=== PATIENT | female | born 1960 | race Caucasian/White ===

== ENCOUNTER 2019-07-17 14:22 | Inpatient (IN) ==
[2019-07-17] MEDS ORDERED: METOCLOPRAMIDE HCL INJ 5 MG/ML 2 ML VIAL IV PRN (14:41)
[2019-07-17 15:39] LABS: Basophils # (auto) 0.02 K/uL (0-0.2); Basophils % (auto) 0.2 %; Eosinophils # (auto) 0.04 K/uL (0-0.5); Eosinophils % (auto) 0.4 %; Hematocrit (blood only) 34.8 % (37-47); Hemoglobin 11.7 g/dL (12.0-16.0); Immature Granulocytes # (auto) 0.04 K/uL (0.00-0.02); Immature Granulocytes % (auto) 0.4 %; Lymphocytes # (auto) 1.99 K/uL (1.2-3.4); Lymphocytes % (auto) 21.3 %; Mean Corpuscular Volume 89.2 fL (80-100); Mean Platelet Volume 8.5 fL (7.4-10.4); Monocytes # (auto) 1.02 K/uL (0.11-0.59); Monocytes % (auto) 10.9 %; Neutrophils # (auto) 6.25 K/uL (1.4-6.5); Neutrophils % (auto) 66.8 %; Platelet Count 300 K/uL (130-400); RDW Coefficient of Variation 14.3 % (11.5-14.5); RDW Standard Deviation 46.8 fL (36.4-46.3); White Blood Count 9.36 K/uL (4.8-10.8)
--- NOTE | 2019-07-17 15:42 | History & Physical Report ---
Date of Service July 17, 2019 Assessment & Plan (1) Dislocation of right shoulder joint: She sustained a fall on July 06. She presented to [facility] emergency room on the third. X-rays at that time demonstrated a dislocation of the shoulder with a small inferior bony Bankart. Attempt was made by the emergency room staff for reduction under sedation but they were unsuccessful area they discussed the case with a different orthopedic surgeon who recommended sling and follow-up in the office. However she did not follow-up in his office she presented to my office today. New x-rays were obtained once again demonstrate the description of the shoulder. The plan will be for attempted closed reduction under anesthesia in the operating room. She is chronically on Coumadin and we will need to reverse this in case I need to perform an open reduction of the shoulder. I will have medicine see her for medical management as well as for reversal of her anticoagulation. An INR has been ordered but is still pending. Present on Admission?: Yes History of Present Illness On warfarin therapy Chief Complaint: Right shoulder dislocation Primary Care Provider: NO PCP The patient is a 58-year-old female with a past history of stroke with right- sided weakness. She sustained a fall on July 06. She was seen at the emergency room at [facility] on July 12. At that time she was diagnosed with a dislocation of the right shoulder. An attempt at reduction was apparently made several times to the emergency room first without sedation and then with sedation. They are unable to obtain a reduction. They contacted a different orthopedist who recommended placing her into a sling with follow-up in the office. The patient presented to my office today. I tried to contact the orthopedist that was traffic control specialist and he is out of town. New x-rays in my office again demonstrate that she is still dislocated. There appears to be inferior bony Bankart. Past Med/Surg History Medical History Hypertension Status post tubal ligation Stroke Physical Exam Constitutional: WD/WN, vitals as above Neck: normal visual inspection Respiratory: normal respiratory effort Cardiovascular: Extremities: normal capillary refill; no edema Musculoskeletal: Right upper extremity: 2+ radial pulse. Light touch sensation is grossly intact in the median ulnar radial nerve distributions however she complains of tingling in the median nerve distribution. Motor function appears to be intact in the median radial and ulnar nerve distribution. Axillary nerve sensation is intact. She holds the arm and internally rotated fix position. I can bring the arm into about 10 degrees short of neutral rotation with pain as well as mechanical block Results & Data Vital Signs (Past 12 Hours) Vital Signs Temp Pulse Resp BP Pulse Ox 07/17/19 15:27 36.8 C 62 18 145/80 H 93 Code Status & VTE Plan VTE Prophylaxis Plan VTE Prophylaxis will be ordered: Yes
[2019-07-17 15:51] LABS: Mean Corpuscular Hgb Conc 33.6 g/dL (32-36)
--- NOTE | 2019-07-17 15:52 | XRay Report ---
XR chest 2V PA/lateral CLINICAL HISTORY: 58 years-old Female presenting with pre op. TECHNIQUE: PA and lateral views of the chest were obtained. COMPARISON: None. FINDINGS: Atherosclerosis of the aortic arch. Cardiac silhouette top normal in size. Lungs and pleural spaces c lear. Degenerative changes of the thoracic spine. Positioning of the right humeral head concerning fo r anterior subluxation/dislocation. Upper abdomen normal. IMPRESSION: 1. No acute cardiopulmonary disease. 2. Positioning of the right humeral head raises concern for anterior subluxation/dislocation. Correl ate clinically. The report will be called/faxed according to standard departmental protocol. Electronically signed by: Eduardo Anderson M.D. 07/17/2019 3:50 PM
[2019-07-17 15:57] LABS: INR 4.9 (0.9-1.1); Prothrombin Time 44.7 Seconds (9.0-12.0)
--- NOTE | 2019-07-17 15:58 | Hospitalist Consultation ---
Date of Consultation July 17, 2019 Assessment & Plan (1) Dislocation of right shoulder joint: Management per primary service - tentatively scheduled for OR tomorrow. EKG and chest x-ray obtained and reviewed. Pt is considered a moderate operative risk due to co-morbidities but medically optimized at this time. No contraindication to proceeding with planned intervention from a medical perspective. (2) Chronic anticoagulation: Pt is on chronic Coumadin due to history of CVA - currently supratherapeutic - Will reverse with vitamin K 10 mg IV x 1 dose due to potential need for open reduction. Recheck INR in AM - After surgery, once okay with primary service, will need to resume warfarin with a heparin bridge (standard dose, no bolus) (3) CKD (chronic kidney disease) stage 3, GFR 30-59 ml/min: Labs reviewed - creatinine appears to be at baseline. Continue to monitor closely as pt's kidneys seem to be more sensitive to changes in volume status. - Will start NSS at 100 ml/hr due to anticipated OR tomorrow - Follow BMP daily (4) Essential hypertension: BP mildly elevated but suspect due to ongoing pain - Continue home medications including amlodipine and carvedilol (5) Major depression: Stable at this time on current regimen of bupropion, lamotrigine, sertraline and trazodone - will continue as inpatient (6) Chronic lower back pain: - Continue outpatient gabapentin (7) Dyslipidemia: - Continue outpatient statin therapy (8) GERD (gastroesophageal reflux disease): - Continue outpatient PPI therapy (omeprazole) Patient seen and reviewed with collaborating physician, Dr. Mei. Plan of care discussed and as outlined above. Further recommendations per attending note. Nely Eller PA-C Supervising Physician Co-Signing Physician Notes Attending Addendum: care coordinated with SARAH Conner please refer to her notes for full details, I agree with her notes patient seen and examined, records reviewed by myself as well on exam, patient seen resting in bed, comfortable pain well controlled no other symptoms VS noted and reviewed oriented x 3, not in distress, speaks in sentences with no effort nor accessory muscle use normal rate, regular rhythm, no murmurs clear breath sounds bilaterally non distended, soft, nontender (+) tenderness to the right shoulder no bipedal edema, erythema, warmth no neuro deficits WBC 9.3 Hg 11.7 Crea 1.14 INR 4.9 ASSESSMENT AND PLAN RIGHT SHOULDER DISLOCATION CHRONIC ANTICOAGULATION WITH COUMADIN FOR HISTORY OF EMBOLIC STROKE INR 4.9, Vit K 10mg IV given for reversal of coumadin check INR tomorrow after surgery, when hemostasis stable per Ortho, patient will need to resumed coumadin with heparin bridge (no bolus, standard dose) CKD 3 IV fluids, monitor closely HTN continue usual medications other diagnoses and plan of care as per SARAH Eller notes Maikel Mei MD History of Present Illness Reason for Consultation: Medical Management Attending Physician: Eduardo Sam MD History of Present Illness This is a 58 y/o female with a 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 Pt reports that she fell about 10 days ago (07/06/19) when her ankle gave out on her and she rolled it. She did not have any ankle injury but did land on her right shoulder. She was seen in the ED at [facility] on 07/12 and found to have a right anterior shoulder dislocation which was causing her persistent shoulder pain. The providers in the ED were unable to reduce her shoulder so she was referred to orthopedics outpatient but was not able to be seen until today. Pt reports that she has been utilizing the sling given to her by the ED intermittently since she found that it made her more uncomfortable at times. She has been taking Tylenol and the Percocet prescribed by the ED for pain with variable results. She was trying to use the arm to keep it mobile but it was making the swelling worse so she is using it less over the past few days. Mostly she reports keeping her right arm close to her body with the elbow flexed. She is left-hand dominant. No numbness or tingling in the right hand. 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 She reports that her INR has been somewhat labile with last INR being 3.2. The warfarin was decreased to 7.5 mg daily. She was also noted to have an elevated homocysteine level. She has a history of alcohol abuse but reports that she is no longer drinking (stopped after the CVA). She has residual balance issues since the CVA but reports that she maxed out her PT visits so has been unable to continue with therapy. Allergies Allergy/AdvReac Type Severity Reaction Status Date / Time No Known Allergies Allergy Verified 07/17/19 15:44 Home Medications Home Medications Medication Instructions Recorded Confirmed Type amlodipine 10 mg PO DAILY 07/17/19 07/17/19 History atorvastatin 40 mg PO QPM 07/17/19 07/17/19 History bupropion HCl 75 mg PO DAILY 07/17/19 07/17/19 History carvedilol 25 mg PO BID 07/17/19 07/17/19 History ferrous sulfate 650 mg PO DAILY 07/17/19 07/17/19 History gabapentin 300 mg PO BID 07/17/19 07/17/19 History lamotrigine 50 mg PO BID 07/17/19 07/17/19 History melatonin 3 mg PO HS 07/17/19 07/17/19 History omeprazole 20 mg PO DAILY 07/17/19 07/17/19 History oxycodone-acetaminophen 1 tab PO Q6H PRN 07/17/19 07/17/19 History sertraline 50 mg PO DAILY 07/17/19 07/17/19 History trazodone 300 mg PO HS 07/17/19 07/17/19 History warfarin 7.5 mg PO DAILY 07/17/19 07/17/19 History Patient History Medical History CKD (chronic kidney disease) stage 3, GFR 30-59 ml/min Chronic lower back pain Dyslipidemia Elevated homocysteine Essential hypertension GERD (gastroesophageal reflux disease) History of alcohol abuse Hypertension Major depression Obesity Stroke 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/26 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 Surgical History History of D&C History of carpal tunnel release of both wrists Status post tubal ligation Family History Uncle Diabetes Grandfather (Paternal) Heart disease Grandmother (Paternal) Heart disease Hypertension Father Liver cancer Mother Thyroid disease Sister Thyroid disease Social History Preferred Language: Faroese Communication Ability: Effective Glassblower Required: No Beliefs That Will Affect Care: None Current Living Situation: Family current occupational status: disabled Feels Safe at Home: Yes Safety Concerns: Feels Safe At This Time Smoking Status: Former smoker Hx Alcohol Use: No Hx Substance Use: No Review of Systems Review of Systems: All systems reviewed & are unremarkable except as noted in HPI & below Constitutional: + fatigue and + anorexia (due to pain); no fever, no chills, no sweats, no weight loss and no weight gain Eyes: no diplopia and no spots in vision Ear, Nose, Mouth, Throat: no ear pain, no nasal congestion, no nasal discharge, no bleeding gums, no sore throat and no dysphagia Respiratory: no cough, no dyspnea and no wheezing Cardiovascular: no chest pain, no palpitations, no lightheadedness, no syncope and no edema Gastrointestinal: no abdominal pain, no nausea, no vomiting, no diarrhea/loose stools and no blood in stools Genitourinary: no dysuria, no urinary frequency and no hematuria Musculoskeletal: as per Subjective / HPI and + back pain (chronic) Integumentary: no rash and no skin ulcer Neurologic: + gait abnormality, + falls and + headache(s) (due to neck/shoulder pain); no tingling, no numbness and no seizure-like activity Psychiatric: + depression Physical Exam Constitutional: WD/WN, vitals as above no acute distress Eyes: + anicteric sclerae; no conjunctival abnormality ENMT: external ear and nose normal, oropharynx normal Neck: trachea midline Respiratory: normal respiratory effort, lungs clear to auscultation Auscultation: no rales, no rhonchi and no wheezes Cardiovascular: Rate/Rhythm: regular rate and regular rhythm Heart Sounds: no gallop and no murmur Vessels: no carotid bruit Extremities: normal capillary refill; no calf tenderness and no pedal edema Gastrointestinal (Abdomen): Inspection/Auscultation: normal bowel sounds; abdomen not distended Percussion/Palpation: abdomen soft; abdomen nontender Musculoskeletal: Anterior shoulder deformity with mild edema and fading ecchymosis Dermatology Physician Assistant strength 5/5 bilaterally Skin: no jaundice Neurologic: Speech / Cognition: normal speech Sensation to light touch equal bilateral UE Psychiatric: A+Ox3, euthymic affect Results & Data Vital Signs (Past 12 Hours) Vital Signs Temp Pulse Resp BP Pulse Ox 07/17/19 15:27 36.8 C 62 18 145/80 H 93 Laboratory Results Laboratory Results - last 24 hr 07/17/19 07/17/19 07/17/19 15:12 15:20 15:20 WBC 9.36 RBC 3.90 L Hgb 11.7 L Hct 34.8 L MCV 89.2 MCH 30.0 MCHC 33.6 RDW Std Deviation 46.8 H RDW Coeff of Porfirio 14.3 Plt Count 300 MPV 8.5 Immature Gran % (Auto) 0.4 Neut % (Auto) 66.8 Lymph % (Auto) 21.3 [place] % (Auto) 10.9 Eos % (Auto) 0.4 Baso % (Auto) 0.2 Immature Gran # (Auto) 0.04 H Neut # (Auto) 6.25 Lymph # (Auto) 1.99 [place] # (Auto) 1.02 H Eos # (Auto) 0.04 Baso # (Auto) 0.02 PT 44.7 H INR 4.9 H Sodium 134 L Potassium 3.5 Chloride 102 Carbon Dioxide 25 Anion Gap 7.0 BUN 10 Creatinine 1.14 Est Cr Clr Drug Dosing Not Reportable Est GFR ( Amer) 61.4 Est GFR (Non-Af Amer) 53.0 BUN/Creatinine Ratio 9.1 L Glucose 101 H Calcium 8.8 Diagnostic Findings CXR 07/17/19 - IMPRESSION: 1. No acute cardiopulmonary disease. 2. Positioning of the right humeral head raises concern for anterior subluxation/dislocation. Correlate clinically. (1) Major depression Active/Remission status: in partial remission Major depression recurrence: recurrent Qualified Code(s): F33.41 - Major depressive disorder, recurrent, in partial remission (2) Dislocation of right shoulder joint Encounter type: initial encounter Qualified Code(s): S43.004A - Unspecified dislocation of right shoulder joint, initial encounter (3) Chronic lower back pain Back pain laterality: unspecified Sciatica presence: unspecified whether sciatica present Qualified Code(s): M54.5 - Low back pain; G89.29 - Other chronic pain
[2019-07-17 16:02] LABS: BUN Creatinine Ratio 9.1 (10-20); Blood Urea Nitrogen 10 mg/dl (7-18); Calcium 8.8 mg/dl (8.5-10.1); Carbon Dioxide 25 mmol/L (21-32); Chloride 102 mmol/L (98-107); Est GFR (African American) 61.4; Glucose 101 mg/dl (70-99); Potassium 3.5 mmol/L (3.5-5.1); Sodium 134 mmol/L (136-145)
[2019-07-17] MEDS: OXYCODONE HCL IR 5 MG TAB (IMMEDIATE RELEASE) PO PRN ×2 (16:35→20:44)
[2019-07-17] MEDS ORDERED: PHYTONADIONE 10 MG in SODIUM CHLORIDE 0.9% 50 ML IV STA (17:01)
--- NOTE | 2019-07-17 17:52 | Anesthesiology Consultation ---
Date of Service July 17, 2019 Assessment & Plan (1) Encounter for pre-operative examination: Chart Review Chart Review: Patient NOT seen in Pre Admission Testing and blasting entry specialist initiated Patient getting treated for supratherapeutic INR with Vitamin K. Will follow INR. Hospitalist service managing patient. Consults Requested none History Surgery Operation Date: 07/18/19 08:10 Proposed Procedures p Right Shoulder Closed Reduction versus - Eduardo Sam MD s Right Shoulder Open Reduction Internal Fixation - Eduardo Sam MD Allergies Allergy/AdvReac Type Severity Reaction Status Date / Time No Known Allergies Allergy Verified 07/17/19 15:44 Medications Home Medications Medication Instructions Recorded Confirmed Last Taken amlodipine 10 mg PO DAILY 07/17/19 07/17/19 Unknown atorvastatin 40 mg PO QPM 07/17/19 07/17/19 Unknown bupropion HCl 75 mg PO DAILY 07/17/19 07/17/19 Unknown carvedilol 25 mg PO BID 07/17/19 07/17/19 Unknown ferrous sulfate 650 mg PO DAILY 07/17/19 07/17/19 Unknown gabapentin 300 mg PO BID 07/17/19 07/17/19 Unknown lamotrigine 50 mg PO BID 07/17/19 07/17/19 Unknown melatonin 3 mg PO HS 07/17/19 07/17/19 Unknown omeprazole 20 mg PO DAILY 07/17/19 07/17/19 Unknown oxycodone-acetaminophen 1 tab PO Q6H PRN 07/17/19 07/17/19 Unknown sertraline 50 mg PO DAILY 07/17/19 07/17/19 Unknown trazodone 300 mg PO HS 07/17/19 07/17/19 Unknown warfarin 7.5 mg PO DAILY 07/17/19 07/17/19 Unknown Active Medications Generic Name Dose Route Start Last Admin Trade Name Freq PRN Reason Stop Dose Admin Oxycodone HCl 5 mg 07/17/19 15:00 07/17/19 16:35 Roxicodone Immediate Rel PO 07/31/19 14:59 5 mg Q4H PRN Administration Pain Past Medical History Medical History CKD (chronic kidney disease) stage 3, GFR 30-59 ml/min Chronic lower back pain Elevated homocysteine Essential hypertension GERD (gastroesophageal reflux disease) History of alcohol abuse Hypertension Major depression Obesity Stroke 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/26 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 Past Family History Family History Uncle Diabetes Grandfather (Paternal) Heart disease Grandmother (Paternal) Heart disease Hypertension Father Liver cancer Mother Thyroid disease Sister Thyroid disease Past Surgical History Surgical History History of D&C History of carpal tunnel release of both wrists Status post tubal ligation Social History Smoking Status: Former smoker Physical Exam Vital Signs Last Vital Signs Temp 36.8 C 07/17/19 15:27 Pulse 62 07/17/19 15:27 Resp 18 07/17/19 15:27 BP 145/80 H 07/17/19 15:27 Pulse Ox 93 07/17/19 15:27 Testing Laboratory Results 07/17/19 15:12 07/17/19 15:20 PT 44.7 Seconds (9.0-12.0) H 07/17/19 15:20 INR 4.9 (0.9-1.1) H 07/17/19 15:20 Electrocardiogram Date: 07/17/19 Findings: + NSR @ (63) Normal sinus rhythm Nonspecific ST and T wave abnormality Prolonged QT Abnormal ECG No previous ECGs available Confirmed by Jim Nichols ([id number]) on 07/17/2019 5:11:40 PM Chest X-Ray Date: 07/17/19 XR chest 2V PA/lateral CLINICAL HISTORY: 58 years-old Female presenting with pre op. TECHNIQUE: PA and lateral views of the chest were obtained. COMPARISON: None. FINDINGS: Atherosclerosis of the aortic arch. Cardiac silhouette top normal in size. Lungs and pleural spaces clear. Degenerative changes of the thoracic spine. Position ing of the right humeral head concerning for anterior subluxation/dislocation. Upper abdomen normal. IMPRESSION: 1. No acute cardiopulmonary disease. 2. Positioning of the right humeral head raises concern for anterior subluxation/dislocation. Correlate clinically. The report will be called/faxed according to standard departmental protocol.
[2019-07-17] MEDS: SODIUM CHLORIDE 0.9% 1000ML 1,000 ML IV SCH (19:04)
[2019-07-17] MEDS: carvediloL 25 MG TAB PO SCH (20:19)
[2019-07-17] MEDS: TRAZODONE HCL 100 MG TAB PO SCH (20:19)
[2019-07-17] MEDS: lamoTRIgine 25 MG TAB PO SCH (20:20)
[2019-07-17] MEDS: ATORVASTATIN 40 MG TAB PO SCH (20:20)
[2019-07-17] MEDS: GABAPENTIN 300 MG CAP PO SCH (20:20)
[2019-07-18] MEDS: OXYCODONE HCL IR 5 MG TAB (IMMEDIATE RELEASE) PO PRN ×4 (00:59→20:38)
[2019-07-18] MEDS: SODIUM CHLORIDE 0.9% 1000ML 1,000 ML IV SCH ×3 (03:31→23:54)
[2019-07-18] MEDS ORDERED: CEFAZOLIN 2000MG 2,000 MG/15 ML SYR IV SCH (06:00)
[2019-07-18 06:31] LABS: BUN Creatinine Ratio 8.8 (10-20); Creatinine Clr Calc Pharmacy 46.4 ml/min; Est GFR (African American) 61.4; Potassium 3.4 mmol/L (3.5-5.1)
[2019-07-18] MEDS: SERTRALINE HCL 50 MG TABLET PO SCH (07:45)
[2019-07-18] MEDS: lamoTRIgine 25 MG TAB PO SCH ×2 (07:46→20:38)
[2019-07-18] MEDS: carvediloL 25 MG TAB PO SCH ×2 (07:46→20:38)
[2019-07-18] MEDS: buPROPion HCl 75 MG TABLET PO SCH (07:46)
[2019-07-18] MEDS: AMLODIPINE BESYLATE 5 MG TAB PO SCH (07:46)
[2019-07-18] MEDS: GABAPENTIN 300 MG CAP PO SCH ×2 (07:46→20:38)
[2019-07-18] MEDS: PANTOprazole 40 MG TAB PO SCH (07:46)
[2019-07-18 08:29] LABS: INR 1.4 (0.9-1.1); Prothrombin Time 13.9 Seconds (9.0-12.0)
[2019-07-18] MEDS ORDERED: DEXAMETHASONE SOD INJ 4 MG/ML VIAL ONE (08:55)
[2019-07-18] MEDS ORDERED: fentaNYL citrate 100 MCG/2 ML VIAL ONE (08:55)
[2019-07-18] MEDS ORDERED: PROPOFOL IV EMULSION 10 MG/ML 20 ML VIAL IV ONE (08:55)
[2019-07-18] MEDS ORDERED: MIDAZOLAM HCL 1 MG/ML 2ML VIAL ONE (08:55)
[2019-07-18] MEDS ORDERED: ONDANSETRON INJ 2 MG/ML 2 ML VIAL ONE ×2 (08:55→12:02)
[2019-07-18] MEDS ORDERED: LIDOCAINE HCL 2% 2 ML VIAL/AMP(20MG/ML) INFIL ONE (08:55)
[2019-07-18] MEDS ORDERED: ROCURONIUM BROMIDE 10 MG/ML 5 ML VIAL ONE (08:55)
[2019-07-18] MEDS ORDERED: SUGAMMADEX SODIUM 200 MG/2 ML VIAL IV ONE (08:59)
--- NOTE | 2019-07-18 09:05 | History & Physical Bridge Note ---
Date of Service July 18, 2019 History & Physical Bridge Note I have examined the patient, reviewed the History & Physical and in the interval since the performance of the History & Physical I have noted the following changes of clinical significance: no changes noted
[2019-07-18] MEDS ORDERED: ROPIVACAINE 0.5% 5 MG/ML 30 ML VIAL ONE (09:24)
[2019-07-18] MEDS ORDERED: ONDANSETRON INJ 2 MG/ML 2 ML VIAL IV PRN ×2 (09:31→13:05)
[2019-07-18] MEDS ORDERED: ePHEDrine sulfate 50 MG/ML AMP IV PRN (09:31)
[2019-07-18] MEDS ORDERED: ATROPINE SULFATE 0.1 MG/ML 10ML SYR IV PRN (09:31)
[2019-07-18] MEDS ORDERED: fentaNYL citrate 100 MCG/2 ML VIAL IV PRN (09:31)
[2019-07-18] MEDS ORDERED: CEFAZOLIN 250 MG/ML 1 GM VIAL ONE (10:19)
[2019-07-18] MEDS ORDERED: ePHEDrine sulfate 50 MG/ML SYR ONE (11:22)
[2019-07-18] MEDS ORDERED: PHENYLEPHRINE 100MCG/ML 5ML SYR ONE (11:22)
--- NOTE | 2019-07-18 11:55 | Operative Report ---
Post Operative Report Pre & Post Diagnosis Operation Date: 07/18/19 08:10 Pre-Op Diagnosis: RIGHT SHOULDER DISLOCATION Post-Op Diagnosis: RIGHT SHOULDER DISLOCATION, anterior inferior bony Bankart, subscapularis tear I identified the patient and participated in the time-out.: Yes Procedure Operation Date: 07/18/19 08:10 Actual Procedures p Right Shoulder Closed Reduction Converted to (Right) - Eduardo Sam MD s Right Shoulder Open Reduction, Anterior Labral Repair (Bankart), Subscapular Repair. (Right) - Eduardo Sam MD Surgeon Eduardo Sam MD Form Builder Helper Daniel Huang PA-C Estimated Blood Loss 50 Findings Consistent with Post-Op Diagnosis Specimens None Drains None Anesthesia Type General Regional Complications none Disposition Accompanied Patient To Recovery: No Disposition: Recovery Room Indications The patient is a 58-year-old female who sustained a fall on July 06. She was seen at [facility] emergency room on July 12. She was diagnosed with a anterior-inferior shoulder dislocation. Attempted reductions were made and they are unable to reduce the shoulder. Case was discussed with a different orthopedic surgeon and recommended sending her home with follow-up in the office and sling and pain control. She subsequently presented to my office on Saturday with a continued shoulder dislocation. I admitted her on Saturday night and reviewed reversed her Coumadin as she has a history of stroke for close reduction in the operating room with possible open reduction if I am unable to reduce it in a closed fashion. Description of Procedure Risks, benefits and alternatives to surgery including, but not limited to, infection DVT, pain, stiffness, need for revision surgery, failure to relieve all symptoms, damage to blood vessels, damage to nerves, risk of anesthesia were discussed with the patient and they wished to proceed. The patient was identified. Laterality was confirmed and marked. The patient received a preoperative antibiotic as well as an interscalene block. They were transferred to the operating room and placed in the supine position and induced into general endotracheal anesthesia per the anesthesia staff. I then pulled traction on the arm. I felt the shoulder reduce. I confirmed this under live fluoroscopy. I then checked the stability of the shoulder and the shoulder dislocated relatively easily with simply releasing of the tension and bringing to a small amount of external rotation. I again reduced the shoulder and checked for the stability and again she was unstable and not able to stay reduced with any reliability. Therefore elected to proceed with an open reduction repair of necessary structures. The patient was then safely tr ansferred to a slight beachchair position. All pressure points were well padded. The shoulder was prepped and draped in the usual sterile manner with ChloraPrep. I made a longitudinal incision just lateral to the coracoid, sharply incising through the skin and utilizing Bovie electrocautery to achieve hemostasis. I identified the cephalic vein and mobilized it laterally with the deltoid. I m obilize the pectoralis and mobilize this medially releasing a small portion of the upper border of the pec tendon to improve visualization. I then identified and mobilized the conjoined tendon. I identified the long head of the biceps tendon. Long head of the biceps had chronic tearing into it. I inspected the subscapularis. She had a rupture of the subscapularis onto its insertion to the lesser tuberosity. I tagged the subscapularis tendon with #2 FiberWire suture. There is some small remaining tissue fibers that were released but otherwise the subscapularis peeled off of the lesser tuberosity relatively easily. I then exposed the glenoid. Her imaging had demonstrated a bony inferior Bankart fracture. There was some loose fragments of cartilage that were removed. Bony tissue that was still within the labral tissue I kept in place. I identified and mobilized the torn anterior labrum and capsular tissue. I then placed a total of 4 1.8 mm Q fix suture anchors into the glenoid starting at the 6 o'clock position and working up into an anterior position around the 3 o'clock position. The sutures were passed around the labral tissue in a simple stitch fashion. The tissue was then tensioned to mobilize it anteriorly to restore tension and stability to the shoulder. Once I had these sutures tied I again took the shoulder through range of motion and appeared to be stable. She had a large Hill-Sachs lesion noted on her preoperative imaging as well as under live fluoroscopy but as she had good stability with the labral repair I did not feel that we required any additional work such as a remplissage posteriorly. I thoroughly irrigated the wound. I then turned my attention to repairing her subscapularis tear. I placed two 2.8 mm Q fix suture anchors into the lesser tuberosity on the medial aspect. The sutures were then passed through the subscapularis and horizontal mattress fashion and tensioning it to provide some additional stability and a little bit of imbrication to the subscapularis. The sutures were tied and then 1 suture limb from each knot was placed into a 5.5 mm multi-fix S suture anchor. I placed 1 superior laterally and another more inferior laterally completing a double row repair. I again brought the arm through range of motion and confirm stability and she did not dislocate. Maintenance of reduction was again confirmed with fluoroscopy. The deltopectoral interval was closed with interrupted #1 Ethibond suture. The subcutaneous tissue was closed with interrupted 2-0 Vicryl suture. The skin was closed with carmen. A sterile dressing was applied. A sling was placed. All needle and sponge counts were correct at the end of the procedure. The patient was transferred to the PACU in stable condition without apparent com plication. The PA-C was necessary for assistance with procedure for assistance in positioning, prepping, draping, retraction and closure. I attest to the content of the Intraoperative Record and any orders documented therein. Any exceptions are noted below.
--- NOTE | 2019-07-18 12:53 | Anesthesiology Progress Note ---
Date of Service July 18, 2019 Anesthesia Post Procedure Vital Signs Vital Signs: Temp Pulse Pulse Pulse Resp BP Pulse Ox 07/18/19 12:05 36.4 C L 72 18 141/80 H 99 07/18/19 07:34 36.6 C 74 18 150/74 H 91 07/17/19 23:25 36.7 C 72 16 122/72 93 07/17/19 20:17 62 100/68 07/17/19 19:30 36.8 C 62 18 115/66 93 07/17/19 19:00 36.8 C 64 16 93/66 L 94 07/17/19 18:44 36.8 C 68 16 97/57 L 94 07/17/19 18:24 36.6 C 67 16 99/66 L 95 07/17/19 15:27 36.8 C 62 18 145/80 H 93 Pain Intensity Right Shoulder: Pain Intensity: 0 Transfer of Care Handoff Completed per policy Notes Mental Status: alert / awake / arousable and participated in evaluation Patient Amnestic to Procedure: Yes Nausea / Vomiting: adequately controlled Pain: adequately controlled Airway Patency, RR, SpO2: stable & adequate BP & HR: stable & adequate Hydration State: stable & adequate Anesthetic Complications: no major complications apparent and Pt Satisfied with anesthetic care Notes: Block is functioning well.
[2019-07-18] MEDS ORDERED: bisacodyL 10 MG SUPP PR PRN (13:05)
[2019-07-18] MEDS ORDERED: MAGNESIUM HYDROXIDE SUSP 30 ML UDC PO PRN (13:05)
[2019-07-18] MEDS ORDERED: METOCLOPRAMIDE HCL INJ 5 MG/ML 2 ML VIAL IV PRN (13:05)
[2019-07-18] MEDS ORDERED: NALOXONE HCL 0.4 MG/1 ML VIAL/CARP IV PRN (13:05)
[2019-07-18] MEDS ORDERED: HYDROmorphone INJ 0.5 MG/0.5 ML SYR IV PRN (13:05)
[2019-07-18] MEDS: POTASSIUM CHLORIDE / WTR 10 MEQ/100 ML PLCT IV SCH ×2 (13:45→14:45)
--- NOTE | 2019-07-18 15:10 | Fluoroscopy Report ---
FL shoulder RT min 2V CLINICAL HISTORY: CLOSED REDUCTION OF RIGHT SHOULDER DISLOCATION COMPARISON STUDY: Chest x-ray dated 07/17/2019 FLUOROSCOPY TIME: 22 seconds. NUMBER OF FLUOROSCOPIC IMAGES: 3 FINDINGS: Image #1 demonstrates an anterior right shoulder dislocation with a Hill-Sachs deformity im ages #2 and 3 demonstrate interval reduction of the previously described dislocation. IMPRESSION: Fluoroscopic spot films demonstrating reduction of a right anterior shoulder dislocation . Electronically signed by: Matthew Singh M.D. 07/18/2019 3:09 PM
[2019-07-18] MEDS: WARFARIN SOD 7.5 MG TAB PO SCH (16:39)
[2019-07-18] MEDS: CEFAZOLIN 1000MG 1,000 MG/7.5 ML SYR IV SCH (17:24)
--- NOTE | 2019-07-18 17:57 | Hospitalist Progress Note ---
Date of Service July 18, 2019 Assessment & Plan (1) Dislocation of right shoulder joint: Right shoulder dislocation following a recent fall EKG and chest x-ray obtained and reviewed. Underwent right shoulder open reduction, anterior labral repair and subcapsular repair by Dr. womack this morning Remains stable following surgery Denies any significant pain Management will be as per Orth (2) Chronic anticoagulation: Pt is on chronic Coumadin due to history of CVA - currently supratherapeutic - Will reverse with vitamin K 10 mg IV x 1 dose due to potential need for open reduction. -INR was 1.4 this morning -Anticoagulation can be restarted from tomorrow-preferably heparin without bolus and Coumadin until INR is therapeutic (3) CKD (chronic kidney disease) stage 3, GFR 30-59 ml/min: Labs reviewed - creatinine appears to be at baseline. Continue to monitor closely as pt's kidneys seem to be more sensitive to changes in volume status. - Will start NSS at 100 ml/hr due to anticipated OR tomorrow - Follow BMP daily -Creatinine remains stable (4) Essential hypertension: BP mildly elevated but suspect due to ongoing pain - Continue home medications including amlodipine and carvedilol -Blood pressure is controlled (5) Major depression: Stable at this time on current regimen of bupropion, lamotrigine, sertraline and trazodone - will continue as inpatient (6) Chronic lower back pain: - Continue outpatient gabapentin (7) Dyslipidemia: - Continue outpatient statin therapy (8) GERD (gastroesophageal reflux disease): - Continue outpatient PPI therapy (omeprazole) Medically stable Anticoagulation should be restarted from tomorrow Subjective 07/18 The patient was seen and examined in medical floor She was admitted with the dislocation of right shoulder following a recent fall She underwent right shoulder open reduction, and did your labral repair and subcapsular repair today Remains little drowsy from medication use otherwise no symptom Review of Systems Review of Systems: All systems reviewed and are unremarkable except as noted below Musculoskeletal: Pain in right shoulder Physical Exam Physical Exam: Lying in bed comfortably Constitutional: well developed, well nourished and + morbidly obese; no acute distress Eyes: PERRL, conjunctivae normal, anicteric sclerae ENMT: external ear and nose normal, oropharynx normal Neck: trachea midline, no thyromegaly Respiratory: normal respiratory effort; no respiratory distress Auscultation: + diminished lung sounds; no crackles and no wheezes Cardiovascular: Rate/Rhythm: regular rate and regular rhythm Heart Sounds: no murmur Gastrointestinal (Abdomen): Inspection/Auscultation: + abdomen distended and normal bowel sounds Percussion/Palpation: abdomen soft; abdomen nontender Musculoskeletal: Status post right shoulder surgery Results & Data Vital Signs (Past 12 Hours) Vital Signs Temp Pulse Pulse Pulse Resp BP BP 07/18/19 15:54 36.6 C 76 17 113/73 07/18/19 15:00 78 18 138/83 07/18/19 14:09 79 18 123/77 07/18/19 13:03 36.7 C 77 18 118/67 07/18/19 12:54 36.4 C L 07/18/19 12:51 73 17 07/18/19 12:50 68 15 136/77 07/18/19 12:46 83 22 07/18/19 12:45 76 15 116/76 07/18/19 12:41 78 15 07/18/19 12:40 78 18 144/89 H 07/18/19 12:36 68 17 07/18/19 12:35 76 14 124/95 07/18/19 12:31 68 22 07/18/19 12:30 70 14 126/73 07/18/19 12:26 69 21 07/18/19 12:25 75 17 141/82 H 07/18/19 12:21 70 18 07/18/19 12:20 69 15 137/80 07/18/19 12:18 75 20 130/78 07/18/19 12:15 78 15 07/18/19 12:11 81 15 141/79 H 07/18/19 12:10 79 16 07/18/19 12:06 74 23 07/18/19 12:05 36.4 C L 70 72 14 141/80 H 141/80 H 07/18/19 07:34 36.6 C 74 18 150/74 H Pulse Ox 07/18/19 15:54 96 07/18/19 15:00 95 07/18/19 14:09 95 07/18/19 13:03 90 07/18/19 12:54 93 07/18/19 12:51 93 07/18/19 12:50 93 07/18/19 12:46 93 07/18/19 12:45 93 07/18/19 12:41 93 07/18/19 12:40 94 07/18/19 12:36 93 07/18/19 12:35 93 07/18/19 12:31 92 07/18/19 12:30 94 07/18/19 12:26 92 07/18/19 12:25 90 07/18/19 12:21 95 07/18/19 12:20 94 07/18/19 12:18 93 07/18/19 12:15 96 07/18/19 12:11 95 07/18/19 12:10 07/18/19 12:06 95 07/18/19 12:05 97 07/18/19 07:34 91 Laboratory Results BMP 07/18/19 05:30 Sodium 140 Potassium 3.4 L Chloride 108 H Carbon Dioxide 28 BUN 10 Creatinine 1.14 Glucose 89 Calcium 8.0 L Medications Administered Current Inpatient Medications Acetaminophen (Tylenol) 650 mg PO Q6H PRN PRN Reason: Fever or Headache Stop: 08/16/19 14:40 Amlodipine Besylate (Norvasc) 10 mg PO DAILY [facility] Stop: 08/17/19 08:59 Last Admin: 07/18/19 07:46 Dose: 10 mg Documented by: Atorvastatin Calcium (Lipitor) 40 mg PO QPM [facility] Stop: 08/16/19 20:59 Last Admin: 07/17/19 20:20 Dose: 40 mg Documented by: Bisacodyl (Dulcolax) 10 mg VT DAILY PRN PRN Reason: Constipation Stop: 08/17/19 13:04 Bupropion HCl (Wellbutrin) 75 mg PO DAILY [facility] Stop: 08/17/19 08:59 Last Admin: 07/18/19 07:46 Dose: 75 mg Documented by: Carvedilol (Coreg) 25 mg PO BID [facility] Stop: 08/16/19 20:59 Last Admin: 07/18/19 07:46 Dose: 25 mg Documented by: Diphenhydramine HCl (Benadryl Capsule) 25 mg PO Q8H PRN PRN Reason: Itching Stop: 08/16/19 14:40 Docusate Sodium (Colace) 100 mg PO BID [facility] Stop: 08/17/19 20:59 Enoxaparin Sodium (Lovenox) 40 mg SQ Q24H [facility] Stop: 08/18/19 08:59 Ferrous Sulfate (Feosol) 650 mg PO DAILY [facility] Stop: 08/18/19 08:59 Gabapentin (Neurontin) 300 mg PO BID [facility] Stop: 08/16/19 20:59 Last Admin: 07/18/19 07:46 Dose: 300 mg Documented by: Hydromorphone HCl (Dilaudid) 0.5 mg IV Q4H PRN PRN Reason: Pain Stop: 08/01/19 13:04 Cefazolin Sodium (Ancef 2000mg) 2,000 mg in 15 mls @ 3.75 mls/min IV PREOP [facility]; Protocol Stop: 07/18/19 18:00 Last Admin: 07/18/19 10:14 Dose: 3.75 mls/min Documented by: Cefazolin Sodium (Ancef 1000mg) 1,000 mg in 7.5 mls @ 2.5 mls/min IV Q8H [facility]; Protocol Stop: 07/19/19 02:02 Last Admin: 07/18/19 17:24 Dose: 2.5 mls/min Documented by: Sodium Chloride (Nss 1000ml) 1,000 mls @ 100 mls/hr IV .Q10H [facility] Stop: 07/19/19 06:00 Last Admin: 07/18/19 13:40 Dose: 100 mls/hr Documented by: Lamotrigine (Lamictal) 50 mg PO BID [facility] Stop: 08/16/19 20:59 Last Admin: 07/18/19 07:46 Dose: 50 mg Documented by: Magnesium Hydroxide (Milk Of Magnesia) 30 ml PO Q6H PRN PRN Reason: Constipation Stop: 08/17/19 13:04 Metoclopramide HCl (Reglan) 10 mg IV Q6H PRN PRN Reason: Nausea/Vomiting Stop: 08/16/19 14:40 Metoclopramide HCl (Reglan) 10 mg IV Q6H PRN PRN Reason: Nausea And Vomiting Stop: 08/17/19 13:04 Multivitamins (Multivitamin Tab) 1 tab PO QAM [facility] Stop: 08/18/19 08:59 Naloxone HCl (Narcan) 0.1 mg IV Q5M PRN PRN Reason: Oversedation/Resp Depression Stop: 08/17/19 13:04 Ondansetron HCl (Zofran) 4 mg IV Q6H PRN PRN Reason: Nausea And Vomiting Stop: 08/17/19 13:04 Oxycodone HCl (Roxicodone Immediate Rel) 5 mg PO Q4H PRN PRN Reason: Pain Stop: 07/31/19 14:59 Last Admin: 07/18/19 15:34 Dose: 5 mg Documented by: Pantoprazole Sodium (Protonix) 40 mg PO DAILY [facility] Stop: 08/17/19 08:59 Last Admin: 07/18/19 07:46 Dose: 40 mg Documented by: Sennosides (Senokot) 17.2 mg PO HS [facility] Stop: 08/17/19 20:59 Sertraline HCl (Zoloft) 50 mg PO DAILY [facility] Stop: 08/17/19 08:59 Last Admin: 07/18/19 07:45 Dose: 50 mg Documented by: Trazodone HCl (Desyrel) 300 mg PO HS [facility] Stop: 08/16/19 20:59 Last Admin: 07/17/19 20:19 Dose: 300 mg Documented by: Warfarin Sodium (Coumadin) 7.5 mg PO DAILY@1600 [facility] Stop: 08/17/19 15:59 Last Admin: 07/18/19 16:39 Dose: 7.5 mg Documented by: (1) Dislocation of right shoulder joint Encounter type: initial encounter Qualified Code(s): S43.004A - Unspecified dislocation of right shoulder joint, initial encounter (2) Major depression Major depression recurrence: recurrent Active/Remission status: in partial remission Qualified Code(s): F33.41 - Major depressive disorder, recurrent, in partial remission (3) Chronic lower back pain Back pain laterality: unspecified Sciatica presence: unspecified whether sciatica present Qualified Code(s): M54.5 - Low back pain; G89.29 - Other chronic pain
[2019-07-18] MEDS: TRAZODONE HCL 100 MG TAB PO SCH (20:38)
[2019-07-18] MEDS: SENNA 8.6 MG TAB PO SCH (20:38)
[2019-07-18] MEDS: DOCUSATE SODIUM 100 MG CAP PO SCH (20:38)
[2019-07-18] MEDS: ATORVASTATIN 40 MG TAB PO SCH (20:38)
[2019-07-18] MEDS: ACETAMINOPHEN 325 MG TAB PO PRN (20:41)
[2019-07-18] MEDS ORDERED: Nursing to Pharmacy Communication ONE (23:35)
[2019-07-19] MEDS: CEFAZOLIN 1000MG 1,000 MG/7.5 ML SYR IV SCH (01:21)
[2019-07-19] MEDS: ACETAMINOPHEN 325 MG TAB PO PRN (03:06)
[2019-07-19] MEDS: OXYCODONE HCL IR 5 MG TAB (IMMEDIATE RELEASE) PO PRN ×5 (03:06→20:53)
[2019-07-19 05:51] LABS: Basophils # (auto) 0.01 K/uL (0-0.2); Basophils % (auto) 0.1 %; Hematocrit (blood only) 32.5 % (37-47); Hemoglobin 10.9 g/dL (12.0-16.0); Immature Granulocytes # (auto) 0.08 K/uL (0.00-0.02); Immature Granulocytes % (auto) 0.6 %; Lymphocytes % (auto) 9.5 %; Mean Corpuscular Hemoglobin 30.1 pg (25-34); Mean Corpuscular Hgb Conc 33.5 g/dL (32-36); Mean Corpuscular Volume 89.8 fL (80-100); Mean Platelet Volume 8.6 fL (7.4-10.4); Monocytes # (auto) 1.67 K/uL (0.11-0.59); Monocytes % (auto) 13.2 %; Neutrophils # (auto) 9.68 K/uL (1.4-6.5); Neutrophils % (auto) 76.6 %; Platelet Count 250 K/uL (130-400); RDW Coefficient of Variation 14.2 % (11.5-14.5); RDW Standard Deviation 46.6 fL (36.4-46.3); Red Blood Count 3.62 M/uL (4.2-5.4); White Blood Count 12.64 K/uL (4.8-10.8)
[2019-07-19 05:57] LABS: INR 1.2 (0.9-1.1)
[2019-07-19 06:27] LABS: BUN Creatinine Ratio 8.6 (10-20); Calcium 8.7 mg/dl (8.5-10.1); Creatinine Clr Calc Pharmacy 52.4 ml/min; Est GFR (African American) 71.1; Est GFR (Non-African American) 61.3; Magnesium 1.7 mg/dl (1.8-2.4); Potassium 3.9 mmol/L (3.5-5.1)
--- NOTE | 2019-07-19 07:43 | Orthopedic Progress Note ---
Date of Service July 19, 2019 Assessment & Plan (1) Dislocation of right shoulder joint: POD#1 Right shoulder closed reduction converted to open reduction, open anterior labral repair, open subscapularis repair -Pain management -PT/OT-NWB RUE, no ROM to RUE -DVT prophylaxis-Started on Lovenox and restarted home Warfarin. AM INR is 1.2 -Am labs- hemoglobin 10.9 this morning, creatine at 1.01. -D/C planning-plan on discharge home when medically stable. Subjective Patient is POD#1 from right shoulder open reduction with anterior labral repair and open subscapularis repair. She is having some increased pain since block has worn off. No complaints of chest pain, sob, dizziness, n/v/d. Review of Systems Review of Systems: All systems reviewed & are unremarkable except as noted in HPI & below Physical Exam Physical Exam: Resting in bed comfortably. Sling in place. Fingers are mobile. Good group marketing vp strength. Dressing is c/d/i. Distally n/v status and sensation intact. Constitutional: well developed and well nourished; no acute distress Results & Data Vital Signs (Past 12 Hours) Vital Signs Temp Pulse Resp BP Pulse Ox 07/19/19 03:23 36.7 C 68 16 166/96 H 93 07/18/19 23:30 36.7 C 73 14 157/84 H 94 (1) Dislocation of right shoulder joint Encounter type: initial encounter Qualified Code(s): S43.004A - Unspecified dislocation of right shoulder joint, initial encounter
[2019-07-19] MEDS: GABAPENTIN 300 MG CAP PO SCH ×2 (07:47→20:42)
[2019-07-19] MEDS: ENOXAPARIN INJ 40 MG/0.4 ML SYR SQ SCH (07:48)
[2019-07-19] MEDS: DOCUSATE SODIUM 100 MG CAP PO SCH ×2 (07:49→20:42)
[2019-07-19] MEDS: lamoTRIgine 25 MG TAB PO SCH ×2 (07:49→20:42)
[2019-07-19] MEDS: PANTOprazole 40 MG TAB PO SCH (07:49)
[2019-07-19] MEDS: FERROUS SULFATE 325 MG TAB PO SCH (07:50)
[2019-07-19] MEDS: AMLODIPINE BESYLATE 5 MG TAB PO SCH (07:50)
[2019-07-19] MEDS: carvediloL 25 MG TAB PO SCH ×2 (07:51→20:42)
[2019-07-19] MEDS: MULTIVITAMIN TAB PO SCH (07:51)
[2019-07-19] MEDS: buPROPion HCl 75 MG TABLET PO SCH (07:52)
[2019-07-19] MEDS: SERTRALINE HCL 50 MG TABLET PO SCH (07:52)
[2019-07-19] MEDS: MAGNESIUM SULFATE / D5W 1 GM/100 ML BAG IV SCH ×2 (10:00→11:22)
--- NOTE | 2019-07-19 14:13 | Anesthesiology Progress Note ---
Date of Service July 19, 2019 Anesthesia Post Procedure Vital Signs Vital Signs: Temp Pulse Pulse Resp BP Pulse Ox 07/19/19 08:32 96 07/19/19 07:10 36.6 C 80 16 163/77 H 96 07/19/19 03:23 36.7 C 68 16 166/96 H 93 07/18/19 23:30 36.7 C 73 14 157/84 H 94 07/18/19 19:20 79 18 141/84 H 95 07/18/19 18:59 36.9 C 74 18 108/63 91 07/18/19 15:54 36.6 C 76 17 113/73 96 07/18/19 15:00 78 18 138/83 95 Pain Intensity Right Shoulder: Pain Intensity: 8 Notes Mental Status: alert / awake / arousable and participated in evaluation Patient Amnestic to Procedure: Yes Nausea / Vomiting: adequately controlled Pain: adequately controlled Airway Patency, RR, SpO2: stable & adequate BP & HR: stable & adequate Hydration State: stable & adequate Anesthetic Complications: no major complications apparent and Pt Satisfied with anesthetic care Notes: Patients block has worn off. No complaints at this time.
--- NOTE | 2019-07-19 14:18 | Hospitalist Progress Note ---
Date of Service July 19, 2019 Assessment & Plan (1) Post-operative state: doing well s/p shoulder surgery POD 1, except pain not well managed. Increased oxycodone to 7.5mg q4h. Informed about constipation side effects. (2) Chronic anticoagulation: Chronic AC 2/2 h/o CVA. INR supratherapeutic on arrival and reversal was given. Warfarin has been restarted. Trend INR daily. (3) CKD (chronic kidney disease) stage 3, GFR 30-59 ml/min: creatinine at baseline (4) Essential hypertension: controlled, cont Norvasc (5) Major depression: Stable at this time on current regimen of bupropion, lamotrigine, sertraline and trazodone - will continue as inpatient (6) Chronic lower back pain: - Continue outpatient gabapentin (7) GERD (gastroesophageal reflux disease): Cont Protonix (8) DVT prophylaxis: Lovenox/Coumadin Full Dispo-plan for home when medically stable and cleared by Orthopedics. Thank you for this consultation. Lilian Milton DO [facility] Hospitalist Subjective pain not well controlled otherwise tolerating PO and feeling well ambulatory Review of Systems Review of Systems: All systems reviewed & are unremarkable except as noted in HPI & below Physical Exam Physical Exam: CONSTITUTIONAL: WNWD, vitals as above, generally well- appearing EYES: normal conjnuctivae, no scleral icterus ENT: MMM RESPIRATORY: clear to auscultation bilaterally, no crackles, rales or wheezes, normal respiratory effort CARDIOVASCULAR: regular rate and rhythm, S1 and 2 heard without murmurs, gallops or rubs, no JVD, no peripheral edema GASTROINTESTINAL: soft, nontender, nondistended MUSCULOSKELETAL: strength intact however, RUe in sling and cast-RUE NVI. SKIN: warm and dry NEUROLOGIC: CN 2-12 grossly intact,no gross focal deficits. PSYCHIATRIC: alert cooperative and oriented to person, place and time. Results & Data Vital Signs (Past 12 Hours) Vital Signs Temp Pulse Resp BP Pulse Ox 07/19/19 08:32 96 07/19/19 07:10 36.6 C 80 16 163/77 H 96 07/19/19 03:23 36.7 C 68 16 166/96 H 93 Laboratory Results Short CBC 07/19/19 Range/Units 05:26 WBC 12.64 H (4.8-10.8) K/uL Hgb 10.9 L (12.0-16.0) g/dL Hct 32.5 L (37-47) % Plt Count 250 (130-400) K/uL [facility] 07/19/19 05:26 Sodium 137 Potassium 3.9 Chloride 103 Carbon Dioxide 28 BUN 9 Creatinine 1.01 Glucose 125 H Calcium 8.7 Medications Administered Current Inpatient Medications Acetaminophen (Tylenol) 650 mg PO Q6H PRN PRN Reason: Fever or Headache Stop: 08/16/19 14:40 Last Admin: 07/19/19 03:06 Dose: 650 mg Documented by: Amlodipine Besylate (Norvasc) 10 mg PO DAILY SHAYNE Stop: 08/17/19 08:59 Last Admin: 07/19/19 07:50 Dose: 10 mg Documented by: Atorvastatin Calcium (Lipitor) 40 mg PO QPM SHAYNE Stop: 08/16/19 20:59 Last Admin: 07/18/19 20:38 Dose: 40 mg Documented by: Bisacodyl (Dulcolax) 10 mg SD DAILY PRN PRN Reason: Constipation Stop: 08/17/19 13:04 Bupropion HCl (Wellbutrin) 75 mg PO DAILY SHAYNE Stop: 08/17/19 08:59 Last Admin: 07/19/19 07:52 Dose: 75 mg Documented by: Carvedilol (Coreg) 25 mg PO BID SHAYNE Stop: 08/16/19 20:59 Last Admin: 07/19/19 07:51 Dose: 25 mg Documented by: Diphenhydramine HCl (Benadryl Capsule) 25 mg PO Q8H PRN PRN Reason: Itching Stop: 08/16/19 14:40 Docusate Sodium (Colace) 100 mg PO BID [facility] Stop: 08/17/19 20:59 Last Admin: 07/19/19 07:49 Dose: 100 mg Documented by: Enoxaparin Sodium (Lovenox) 40 mg SQ Q24H SHAYNE Stop: 08/18/19 08:59 Last Admin: 07/19/19 07:48 Dose: 40 mg Documented by: Ferrous Sulfate (Feosol) 650 mg PO DAILY SHAYNE Stop: 08/18/19 08:59 Last Admin: 07/19/19 07:50 Dose: 650 mg Documented by: Gabapentin (Neurontin) 300 mg PO BID [facility] Stop: 08/16/19 20:59 Last Admin: 07/19/19 07:47 Dose: 300 mg Documented by: Hydromorphone HCl (Dilaudid) 0.5 mg IV Q4H PRN PRN Reason: Pain Stop: 08/01/19 13:04 Last Admin: 07/18/19 23:43 Dose: 0.5 mg Documented by: Lamotrigine (Lamictal) 50 mg PO BID [facility] Stop: 08/16/19 20:59 Last Admin: 07/19/19 07:49 Dose: 50 mg Documented by: Magnesium Hydroxide (Milk Of Magnesia) 30 ml PO Q6H PRN PRN Reason: Constipation Stop: 08/17/19 13:04 Metoclopramide HCl (Reglan) 10 mg IV Q6H PRN PRN Reason: Nausea/Vomiting Stop: 08/16/19 14:40 Metoclopramide HCl (Reglan) 10 mg IV Q6H PRN PRN Reason: Nausea And Vomiting Stop: 08/17/19 13:04 Multivitamins (Multivitamin Tab) 1 tab PO QAM [facility] Stop: 08/18/19 08:59 Last Admin: 07/19/19 07:51 Dose: 1 tab Documented by: Naloxone HCl (Narcan) 0.1 mg IV Q5M PRN PRN Reason: Oversedation/Resp Depression Stop: 08/17/19 13:04 Ondansetron HCl (Zofran) 4 mg IV Q6H PRN PRN Reason: Nausea And Vomiting Stop: 08/17/19 13:04 Oxycodone HCl (Roxicodone Immediate Rel) 5 mg PO Q4H PRN PRN Reason: Pain Stop: 07/31/19 14:59 Last Admin: 07/19/19 11:28 Dose: 5 mg Documented by: Pantoprazole Sodium (Protonix) 40 mg PO DAILY [facility] Stop: 08/17/19 08:59 Last Admin: 07/19/19 07:49 Dose: 40 mg Documented by: Sennosides (Senokot) 17.2 mg PO HS [facility] Stop: 08/17/19 20:59 Last Admin: 07/18/19 20:38 Dose: 17.2 mg Documented by: Sertraline HCl (Zoloft) 50 mg PO DAILY [facility] Stop: 08/17/19 08:59 Last Admin: 07/19/19 07:52 Dose: 50 mg Documented by: Trazodone HCl (Desyrel) 300 mg PO HS [facility] Stop: 08/16/19 20:59 Last Admin: 07/18/19 20:38 Dose: 300 mg Documented by: Warfarin Sodium (Coumadin) 7.5 mg PO DAILY@1600 [facility] Stop: 08/17/19 15:59 Last Admin: 07/18/19 16:39 Dose: 7.5 mg Documented by: (1) Major depression Active/Remission status: in partial remission Major depression recurrence: recurrent Qualified Code(s): F33.41 - Major depressive disorder, recurrent, in partial remission (2) Chronic lower back pain Back pain laterality: unspecified Sciatica presence: unspecified whether sciatica present Qualified Code(s): M54.5 - Low back pain; G89.29 - Other chronic pain
[2019-07-19] MEDS: WARFARIN SOD 7.5 MG TAB PO SCH (16:31)
[2019-07-19] MEDS: ATORVASTATIN 40 MG TAB PO SCH (20:42)
[2019-07-19] MEDS: TRAZODONE HCL 100 MG TAB PO SCH (20:42)
[2019-07-19] MEDS: SENNA 8.6 MG TAB PO SCH (20:42)
[2019-07-20] MEDS: OXYCODONE HCL IR 5 MG TAB (IMMEDIATE RELEASE) PO PRN ×3 (02:27→13:18)
[2019-07-20 06:48] LABS: Hematocrit (blood only) 31.2 % (37-47); Hemoglobin 10.2 g/dL (12.0-16.0); Mean Corpuscular Hemoglobin 29.7 pg (25-34); Mean Corpuscular Hgb Conc 32.7 g/dL (32-36); Mean Corpuscular Volume 90.7 fL (80-100); Mean Platelet Volume 8.8 fL (7.4-10.4); Platelet Count 227 K/uL (130-400); RDW Coefficient of Variation 14.6 % (11.5-14.5); RDW Standard Deviation 47.9 fL (36.4-46.3); Red Blood Count 3.44 M/uL (4.2-5.4); White Blood Count 9.34 K/uL (4.8-10.8)
[2019-07-20 06:58] LABS: INR 1.1 (0.9-1.1); Prothrombin Time 11.6 Seconds (9.0-12.0)
[2019-07-20 07:26] LABS: BUN Creatinine Ratio 9.8 (10-20); Calcium 8.3 mg/dl (8.5-10.1); Creatinine Clr Calc Pharmacy 56.9 ml/min; Est GFR (African American) 78.5; Est GFR (Non-African American) 67.7; Potassium 3.5 mmol/L (3.5-5.1)
--- NOTE | 2019-07-20 07:50 | Anesthesiology Progress Note ---
Date of Service July 20, 2019 Anesthesia Post Procedure Vital Signs Vital Signs: Temp Pulse Resp BP Pulse Ox 07/19/19 22:42 36.7 C 73 16 135/84 91 07/19/19 15:42 36.7 C 64 16 109/73 95 07/19/19 08:32 96 Pain Intensity Right Shoulder: Pain Intensity: 8 Notes Mental Status: alert / awake / arousable and participated in evaluation Patient Amnestic to Procedure: Yes Nausea / Vomiting: adequately controlled Pain: adequately controlled Airway Patency, RR, SpO2: stable & adequate BP & HR: stable & adequate Hydration State: stable & adequate Anesthetic Complications: no major complications apparent and Pt Satisfied with anesthetic care
--- NOTE | 2019-07-20 08:06 | Orthopedic Progress Note ---
Date of Service July 20, 2019 Assessment & Plan (1) Dislocation of right shoulder joint: POD#2 Right shoulder closed reduction converted to open reduction, open anterior labral repair, open subscapularis repair -Pain management -PT/OT-NWB RUE, no ROM to RUE -DVT prophylaxis-Started on Lovenox and restarted home Warfarin. AM INR is 1.1 -Am labs- hemoglobin 10.2 this morning, creatine wnl. -D/C planning-plan on discharge home when medically stable. Subjective Pt lying in bed awake, alert. No compaints this AM. Comfortable. No complaints. Hoping to go home today. Physical Exam Physical Exam: A/O x 3; Dressings C/D/I. Slight tingling in the right index finger and thumb that she has had since her injury. Good strengths / ROM with w rist/hand/fingers. Cap refill < 2 seconds. Results & Data Vital Signs (Past 12 Hours) Vital Signs Temp Pulse Resp BP Pulse Ox 07/19/19 22:42 36.7 C 73 16 135/84 91 Laboratory Results Laboratory Results WBC 9.34 K/uL (4.8-10.8) 07/20/19 06:16 RBC 3.44 M/uL (4.2-5.4) L 07/20/19 06:16 Hgb 10.2 g/dL (12.0-16.0) L 07/20/19 06:16 Hct 31.2 % (37-47) L 07/20/19 06:16 MCV 90.7 fL (80-100) 07/20/19 06:16 MCH 29.7 pg (25-34) 07/20/19 06:16 MCHC 32.7 g/dL (32-36) 07/20/19 06:16 RDW Std Deviation 47.9 fL (36.4-46.3) H 07/20/19 06:16 RDW Coeff of Porfirio 14.6 % (11.5-14.5) H 07/20/19 06:16 Plt Count 227 K/uL (130-400) 07/20/19 06:16 MPV 8.8 fL (7.4-10.4) 07/20/19 06:16 Immature Gran % (Auto) 0.6 % 07/19/19 05:26 Neut % (Auto) 76.6 % 07/19/19 05:26 Lymph % (Auto) 9.5 % 07/19/19 05:26 [place] % (Auto) 13.2 % 07/19/19 05:26 Eos % (Auto) 0.0 % 07/19/19 05:26 Baso % (Auto) 0.1 % 07/19/19 05:26 Immature Gran # (Auto) 0.08 K/uL (0.00-0.02) H 07/19/19 05:26 Neut # (Auto) 9.68 K/uL (1.4-6.5) H 07/19/19 05:26 Lymph # (Auto) 1.20 K/uL (1.2-3.4) 07/19/19 05:26 [place] # (Auto) 1.67 K/uL (0.11-0.59) H 07/19/19 05:26 Eos # (Auto) 0.00 K/uL (0-0.5) 07/19/19 05:26 Baso # (Auto) 0.01 K/uL (0-0.2) 07/19/19 05:26 PT 11.6 Seconds (9.0-12.0) 07/20/19 06:16 INR 1.1 (0.9-1.1) 07/20/19 06:16 Sodium 136 mmol/L (136-145) 07/20/19 06:16 Potassium 3.5 mmol/L (3.5-5.1) 07/20/19 06:16 Chloride 102 mmol/L (98-107) 07/20/19 06:16 Carbon Dioxide 29 mmol/L (21-32) 07/20/19 06:16 Anion Gap 5.0 (3-11) 07/20/19 06:16 BUN 9 mg/dl (7-18) 07/20/19 06:16 Creatinine 0.93 mg/dl (0.6-1.2) 07/20/19 06:16 Est Cr Clr Drug Dosing 56.9 ml/min 07/20/19 06:16 Est GFR ( Amer) 78.5 07/20/19 06:16 Est GFR (Non-Af Amer) 67.7 07/20/19 06:16 BUN/Creatinine Ratio 9.8 (10-20) L 07/20/19 06:16 Glucose 95 mg/dl (70-99) 07/20/19 06:16 Calcium 8.3 mg/dl (8.5-10.1) L 07/20/19 06:16 Magnesium 1.7 mg/dl (1.8-2.4) L 07/19/19 05:26 (1) Dislocation of right shoulder joint Encounter type: initial encounter Qualified Code(s): S43.004A - Unspecified dislocation of right shoulder joint, initial encounter
[2019-07-20] MEDS: lamoTRIgine 25 MG TAB PO SCH (08:40)
[2019-07-20] MEDS: FERROUS SULFATE 325 MG TAB PO SCH (08:41)
[2019-07-20] MEDS: GABAPENTIN 300 MG CAP PO SCH (08:41)
[2019-07-20] MEDS: DOCUSATE SODIUM 100 MG CAP PO SCH (08:41)
[2019-07-20] MEDS: MULTIVITAMIN TAB PO SCH (08:42)
[2019-07-20] MEDS: SERTRALINE HCL 50 MG TABLET PO SCH (08:42)
[2019-07-20] MEDS: PANTOprazole 40 MG TAB PO SCH (08:42)
[2019-07-20] MEDS: buPROPion HCl 75 MG TABLET PO SCH (08:42)
[2019-07-20] MEDS: AMLODIPINE BESYLATE 5 MG TAB PO SCH (08:47)
[2019-07-20] MEDS: carvediloL 25 MG TAB PO SCH (08:47)
[2019-07-20] MEDS: ENOXAPARIN INJ 40 MG/0.4 ML SYR SQ SCH (08:49)
[2019-07-20] MEDS ORDERED: ENOXAPARIN INJ 60 MG/0.6 ML SYR SQ ONE (09:50)
--- NOTE | 2019-07-20 09:55 | Hospitalist Progress Note ---
Date of Service July 20, 2019 Assessment & Plan (1) Post-operative state: Doing well s/p shoulder surgery POD 2. Oxycodone increased yesterday to 7.5mg q4h for better pain control. Informed about constipation side effects. (2) Chronic anticoagulation: Chronic AC 2/2 h/o CVA 10 months ago with elevated homocysteine levels. Bridging indicated -Given 40mg SQ Lovenox today. Discussed with pharmacy and another 60mg will be given to reach full dose -Nursing to do Lovenox teaching so patient can be discharged on 100mg SQ Lovenox daily until coumadin therapeutic -INR 1.1 today. Continue warfarin and instructed to follow up with coumadin clin ic this week (3) CKD (chronic kidney disease) stage 3, GFR 30-59 ml/min: Creatinine at baseline (4) Essential hypertension: BP of 99/68 this morning. Asymptomatic, possible due to increased pain medication -Norvasc held this morning. Continue to monitor BP (5) Major depression: Stable at this time on current regimen of bupropion, lamotrigine, sertraline and trazodone - will continue as inpatient (6) Chronic lower back pain: Continue outpatient gabapentin (7) GERD (gastroesophageal reflux disease): Cont Protonix (8) DVT prophylaxis: Lovenox/Coumadin Dispo-plan to re-evaluate this afternoon for possible discharge home. Will discuss with primary service. Patient seen in collaboration with Dr. Milton. Please see addendum. Supervising Physician Co-Signing Physician Notes I have seen and examined the patient and have discussed the case with the provider above. I agree with the assessment and plan as stated. 58 yo female with elevated homocysteine and recent history of a stroke, requiring a bridge with Lovenox. She has been taught by nursing and will have close follow-up with coumadin clinic and primary care physician. Her pain is better controlled today with the oxycodone 7.5mg dose. Physical exam reveals a repeat blood pressure of 101/67. She is hemodynamically stable and afebrile. Lungs are CTA, and heart exam is normal. She appears euvolemic. RUE is in a surgical wrap and extremity is warm and well-perfused. She is mentating and ambulating at baseline and tolerating PO. OK for discharge with close follow-up with anticoagulation clinic for bridging therapy with Lovenox and primary care follow-up within one week. Thank you for this consultation. Lilian Milton DO [facility] Hospitalist Subjective Seen and examined in [id number]. Feels well today. Pain is better controlled. Ambul ating and performing ADLs without issue. Had a large BM this morning. Denies any fever, chills, lightheadedness, visual changes, chest pain, SOB, nausea, vomiting, abdominal pain or dysuria. No numbness or paresthesias in RUE. Review of Systems Review of Systems: At least ten systems reviewed and negative except as noted in the HPI. Physical Exam Physical Exam: General Appearance: WD/WN, vitals as above, NAD, sitting up in bed, pleasant, conversing easily Head: normocephalic, atraumatic Eyes: normal inspection, PERRL, conjunctivae normal, anicteric sclerae ENT: external ear and nose normal, oropharynx normal Neck: trachea midline, no thyromegaly normal visual inspection Respiratory: lungs clear to auscultation, no wheeze, rales, rhonchi. Normal insp/exp effort, no accessory muscle use Cardiovascular: regular rate, rhythm, no murmur, normal peripheral pulses. Vessels: no JVD or carotid bruit Chest: normal inspection of chest Abdomen/GI: normal bowel sounds, soft, nontender, no hepatosplenomegaly Extremities/Musculoskelatal: no cyanosis or clubbing, extremities motor strength 5/5. +RUE in sling and cast. Neurovascularly intact. Neurologic: PERRL, EOMI, CN's II-XI intact bilaterally and moves all extremities Psychiatric: A+Ox3, euthymic affect Skin: no rashes, normal color, warm/dry Results & Data Vital Signs (Past 12 Hours) Vital Signs Temp Pulse Pulse Resp BP Pulse Ox 07/20/19 08:46 76 99/68 L 07/20/19 08:00 36.8 C 70 17 124/81 90 07/19/19 22:42 36.7 C 73 16 135/84 91 Laboratory Results Short CBC 07/20/19 Range/Units 06:16 WBC 9.34 (4.8-10.8) K/uL Hgb 10.2 L (12.0-16.0) g/dL Hct 31.2 L (37-47) % Plt Count 227 (130-400) K/uL BMP 07/20/19 06:16 Sodium 136 Potassium 3.5 Chloride 102 Carbon Dioxide 29 BUN 9 Creatinine 0.93 Glucose 95 Calcium 8.3 L (1) Major depression Active/Remission status: in partial remission Major depression recurrence: recurrent Qualified Code(s): F33.41 - Major depressive disorder, recurrent, in partial remission (2) Chronic lower back pain Back pain laterality: unspecified Sciatica presence: unspecified whether sciatica present Qualified Code(s): M54.5 - Low back pain; G89.29 - Other chronic pain
--- NOTE | 2019-07-20 15:06 | Discharge Summary ---
Date of Service July 20, 2019 Admission HPI Per Admitting Provider The patient is a 58-year-old female with a past history of stroke with right- sided weakness. She sustained a fall on July 06. She was seen at the emergency room at [facility] on July 12. At that time she was diagnosed with a dislocation of the right shoulder. An attempt at reduction was apparently made several times to the emergency room first without sedation and then with sedation. They are unable to obtain a reduction. They contacted a different orthopedist who recommended placing her into a sling with follow-up in the office. The patient presented to my office today. I tried to contact the or thopedist that was manager implementation and he is out of town. New x-rays in my office again demonstrate that she is still dislocated. There appears to be inferior bony Bankart. Admission Exam Per Admitting Provider Constitutional: WD/WN, vitals as above Neck: normal visual inspection Respiratory: normal respiratory effort Cardiovascular: Extremities: normal capillary refill; no edema Musculoskeletal: Right upper extremity: 2+ radial pulse. Light touch sensation is grossly intact in the median ulnar radial nerve distributions however she complains of tingling in the median nerve distribution. Motor function appears to be intact in the median radial and ulnar nerve distribution. Axillary nerve sensation is intact. She holds the arm and internally rotated fix position. I can bring the arm into about 10 degrees short of neutral rotation with pain as well as mechanical block Principal Diagnosis Right shoulder dislocation Discharge Exam Physical Exam: A/O x 3; Dressings C/D/I. Slight tingling in the right index finger and thumb that she has had since her injury. Good strengths / ROM with wrist/hand/fingers. Cap refill < 2 seconds. Constitutional well developed and well nourished; no acute distress Discharge Data Allergies Allergy/AdvReac Type Severity Reaction Status Date / Time No Known Allergies Allergy Verified 07/17/19 15:44 Consultations 07/17/19 14:41 Consult Internal Medicine Routine 07/18/19 13:05 Consult Case Management - Discharge Planning Routine Procedures Performed Operation Date: 07/18/19 08:10 Actual Procedures s Right Shoulder Closed Reduction Converted to (Right) - Eduardo Sam MD p Right Shoulder Open Reduction Internal Fixation, Anterior Labral Repair (Bankart), Subscapular Repair. (Right) - Eduardo Sam MD Ordered Studies 07/18/19 FL fluoroscopy <1hr Routine FL shoulder RT min 2V Routine 07/18/19 09:31 US - OR guided needle placemen Routine Hospital Course (1) Dislocation of right shoulder joint: Patient presented for direct admission on 07/17/19 with a right shoulder dislocation. She received Vitamin K to reverse her Coumadin. She underwent an attempt at a closed reduction on 07/18/19 however her shoulder was found to be significantly unstable. The decision was made to proceed with an open reduction with anterior labral repair and open subscapularis repair. She tolerated procedure well. The Patient had an uneventful hospital course. Post-operatively, her activity was progressed and well tolerated. The were restarted on home Warfarin and to be bridged with Lovenox until INR is therapeutic. Labs remained stable- lowest hemoglobin recorded: 10.2 and INR of 1.[address] Maikel Mei of medical service was consulted for medical management during admission. Pain controlled on oral medications. Please refer to daily progress notes and PT notes for complete details. After exam on 07/20/19, patient was felt to be stable for discharge home. Patient will f/u in the office in about 2 weeks for further evaluation including x-rays and incision check, sooner if having any issues or concerns. Lab Results 07/17/19 07/17/19 07/17/19 Range/Units 15:12 15:20 15:20 WBC 9.36 (4.8-10.8) K/uL RBC 3.90 L (4.2-5.4) M/uL Hgb 11.7 L (12.0-16.0) g/dL Hct 34.8 L (37-47) % MCV 89.2 (80-100) fL MCH 30.0 (25-34) pg MCHC 33.6 (32-36) g/dL RDW Std Deviation 46.8 H (36.4-46.3) fL RDW Coeff of Porfirio 14.3 (11.5-14.5) % Plt Count 300 (130-400) K/uL MPV 8.5 (7.4-10.4) fL Immature Gran % (Auto) 0.4 % Neut % (Auto) 66.8 % Lymph % (Auto) 21.3 % Macon % (Auto) 10.9 % Eos % (Auto) 0.4 % Baso % (Auto) 0.2 % Immature Gran # (Auto) 0.04 H (0.00-0.02) K/uL Neut # (Auto) 6.25 (1.4-6.5) K/uL Lymph # (Auto) 1.99 (1.2-3.4) K/uL Macon # (Auto) 1.02 H (0.11-0.59) K/uL Eos # (Auto) 0.04 (0-0.5) K/uL Baso # (Auto) 0.02 (0-0.2) K/uL PT 44.7 H (9.0-12.0) Seconds INR 4.9 H (0.9-1.1) Sodium 134 L (136-145) mmol/L Potassium 3.5 (3.5-5.1) mmol/L Chloride 102 (98-107) mmol/L Carbon Dioxide 25 (21-32) mmol/L Anion Gap 7.0 (3-11) BUN 10 (7-18) mg/dl Creatinine 1.14 (0.6-1.2) mg/dl Est Cr Clr Drug Dosing Not Reportable Est GFR ( Amer) 61.4 Est GFR (Non-Af Amer) 53.0 BUN/Creatinine Ratio 9.1 L (10-20) Glucose 101 H (70-99) mg/dl Calcium 8.8 (8.5-10.1) mg/dl Magnesium (1.8-2.4) mg/dl 07/18/19 07/18/19 07/19/19 Range/Units 05:30 08:05 05:26 WBC (4.8-10.8) K/uL RBC (4.2-5.4) M/uL Hgb (12.0-16.0) g/dL Hct (37-47) % MCV (80-100) fL MCH (25-34) pg MCHC (32-36) g/dL RDW Std Deviation (36.4-46.3) fL RDW Coeff of Porfirio (11.5-14.5) % Plt Count (130-400) K/uL MPV (7.4-10.4) fL Immature Gran % (Auto) % Neut % (Auto) % Lymph % (Auto) % Macon % (Auto) % Eos % (Auto) % Baso % (Auto) % Immature Gran # (Auto) (0.00-0.02) K/uL Neut # (Auto) (1.4-6.5) K/uL Lymph # (Auto) (1.2-3.4) K/uL Macon # (Auto) (0.11-0.59) K/uL Eos # (Auto) (0-0.5) K/uL Baso # (Auto) (0-0.2) K/uL PT 13.9 H 12.0 (9.0-12.0) Seconds INR 1.4 H 1.2 H (0.9-1.1) Sodium 140 (136-145) mmol/L Potassium 3.4 L (3.5-5.1) mmol/L Chloride 108 H (98-107) mmol/L Carbon Dioxide 28 (21-32) mmol/L Anion Gap 4.0 (3-11) BUN 10 (7-18) mg/dl Creatinine 1.14 (0.6-1.2) mg/dl Est Cr Clr Drug Dosing 46.4 Est GFR ( Amer) 61.4 Est GFR (Non-Af Amer) 53.0 BUN/Creatinine Ratio 8.8 L (10-20) Glucose 89 (70-99) mg/dl Calcium 8.0 L (8.5-10.1) mg/dl Magnesium (1.8-2.4) mg/dl 07/19/19 07/19/19 07/20/19 Range/Units 05:26 05:26 06:16 WBC 12.64 H (4.8-10.8) K/uL RBC 3.62 L (4.2-5.4) M/uL Hgb 10.9 L (12.0-16.0) g/dL Hct 32.5 L (37-47) % MCV 89.8 (80-100) fL MCH 30.1 (25-34) pg MCHC 33.5 (32-36) g/dL RDW Std Deviation 46.6 H (36.4-46.3) fL RDW Coeff of Porfirio 14.2 (11.5-14.5) % Plt Count 250 (130-400) K/uL MPV 8.6 (7.4-10.4) fL Immature Gran % (Auto) 0.6 % Neut % (Auto) 76.6 % Lymph % (Auto) 9.5 % Macon % (Auto) 13.2 % Eos % (Auto) 0.0 % Baso % (Auto) 0.1 % Immature Gran # (Auto) 0.08 H (0.00-0.02) K/uL Neut # (Auto) 9.68 H (1.4-6.5) K/uL Lymph # (Auto) 1.20 (1.2-3.4) K/uL Macon # (Auto) 1.67 H (0.11-0.59) K/uL Eos # (Auto) 0.00 (0-0.5) K/uL Baso # (Auto) 0.01 (0-0.2) K/uL PT 11.6 (9.0-12.0) Seconds INR 1.1 (0.9-1.1) Sodium 137 (136-145) mmol/L Potassium 3.9 (3.5-5.1) mmol/L Chloride 103 (98-107) mmol/L Carbon Dioxide 28 (21-32) mmol/L Anion Gap 6.0 (3-11) BUN 9 (7-18) mg/dl Creatinine 1.01 (0.6-1.2) mg/dl Est Cr Clr Drug Dosing 52.4 Est GFR ( Amer) 71.1 Est GFR (Non-Af Amer) 61.3 BUN/Creatinine Ratio 8.6 L (10-20) Glucose 125 H (70-99) mg/dl Calcium 8.7 (8.5-10.1) mg/dl Magnesium 1.7 L (1.8-2.4) mg/dl 07/20/19 07/20/19 Range/Units 06:16 06:16 WBC 9.34 (4.8-10.8) K/uL RBC 3.44 L (4.2-5.4) M/uL Hgb 10.2 L (12.0-16.0) g/dL Hct 31.2 L (37-47) % MCV 90.7 (80-100) fL MCH 29.7 (25-34) pg MCHC 32.7 (32-36) g/dL RDW Std Deviation 47.9 H (36.4-46.3) fL RDW Coeff of Porfirio 14.6 H (11.5-14.5) % Plt Count 227 (130-400) K/uL MPV 8.8 (7.4-10.4) fL Immature Gran % (Auto) % Neut % (Auto) % Lymph % (Auto) % Macon % (Auto) % Eos % (Auto) % Baso % (Auto) % Immature Gran # (Auto) (0.00-0.02) K/uL Neut # (Auto) (1.4-6.5) K/uL Lymph # (Auto) (1.2-3.4) K/uL Macon # (Auto) (0.11-0.59) K/uL Eos # (Auto) (0-0.5) K/uL Baso # (Auto) (0-0.2) K/uL PT (9.0-12.0) Seconds INR (0.9-1.1) Sodium 136 (136-145) mmol/L Potassium 3.5 (3.5-5.1) mmol/L Chloride 102 (98-107) mmol/L Carbon Dioxide 29 (21-32) mmol/L Anion Gap 5.0 (3-11) BUN 9 (7-18) mg/dl Creatinine 0.93 (0.6-1.2) mg/dl Est Cr Clr Drug Dosing 56.9 Est GFR ( Amer) 78.5 Est GFR (Non-Af Amer) 67.7 BUN/Creatinine Ratio 9.8 L (10-20) Glucose 95 (70-99) mg/dl Calcium 8.3 L (8.5-10.1) mg/dl Magnesium (1.8-2.4) mg/dl Total Time Total Time Spent Total Time Spent (In Minutes): 20 Discharge Plan Discharge Items Patient Disposition: Home - Self-Care Reason For Visit: RT SHOULDER DISLOCATION Discharge Diagnosis: Right shoulder dislocation, anterior labral tear and subscapularis tear Elevated homocysteine level with recent stroke Activity: Per Instructions section Non-emergency contact: Surgeon Call non-emergency contact if: you have any medication questions, your pain is not controlled, your pain is concerning for you, you have a fever, your temperature is above 101 and your wound has increased redness Follow-up/Referrals: PCP,NO [Primary Care Provider] - Diet: Regular Addtl Attending Provider Instructions: [facility] DISCHARGE INSTRUCTIONS: Make sure to check your INR regularly at your [facility]madin Clinic. SELF CARE INSTRUCTIONS A. You are to wear sling at all times except for hygiene purposes Do NOT actively try to use/engage your shoulder muscles in operative arm at this time. You should NOT do overhead activity, lifting, or attempt to reach behind your back. B. At 48 hours post-operatively, you may change your dressing. (Leave white steri-strips intact if present). Keep dry sterile dressing over incision You are allowed to shower at this time and get the incision area wet, but DO NOT soak or submerge incision area in water. (No baths, swimming pools, hot tubs) C. Do NOT apply soap or any ointment/lotions directly over incision. D. You may use ice as needed to operative shoulder SPECIAL CARE INSTRUCTIONS: VERY IMPORTANT TO READ AND REVIEW A. There are a few signs you need to watch for after you are home. Call [facility] at [phone] if you experience any of the following: a. Increased severe shoulder pain. Some pain is expected b. Increased swelling in your shoulder or arm; pain or swelling in either upper extremity. (Note: swelling and stiffness is normal and expected for several weeks post op, depending on type of shoulder surgery you had). c. Any fluid or drainage from the incision; redness of the incision. d. Shortness of breath or chest pain. B. Please call [facility] at [phone] if you have any questions or concerns about your operation or recovery. C. Call your physician if: a. Temperature is greater than 101 degrees (F). b. Pain is not relieved by prescribed pain medications. c. Increase drainage or redness from incision. d. Unanswered questions or concerns. D. Pain Medication: a. You will be prescribed pain medication upon discharge that should last till your first post-operative appointment. b. If you experience nausea and/or skin rash, discontinue this medication and contact our office for an alternative medication. c. Caution- narcotic pain medication can cause constipation. FOLLOW UP VISIT: Please call [facility] at [phone] to schedule a follow up appointment 10-14 days from your surgery date with Dr. Sam or his PA Roxie Gardening Instructor Provider Instructions: Will need to be bridged with SQ Lovenox upon discharge until coumadin is therapeutic. Nursing to teach patient today. Discussed with pharmacy, who recommended daily dose of 100mg SQ Lovenox until coumadin therapeutic (Goal INR 2-3). Close coumadin clinic follow up within the week and recommend close primary care followup; appointment as follows. 07/24/2019 11:40 AM Avelina Lozano, [facility], [facility] It was a pleasure taking care of you! Please call if you have any questions or problems. You can reach a [facility] hospitalist on duty at [facility] 24 hours a day by calling [phone]. Take care of yourself. Lilian Milton DO [facility] Hospitalist Pending Studies at Discharge: No Stand-Alone Forms: My [facility], Opioid Pain Management, Smoking Cessation Medications and DC Order Prescriptions: New enoxaparin [Lovenox] 100 mg/mL syringe 100 mg SQ DAILY 5 Days Qty: 5 RF: 1 oxycodone 7.5 mg tablet, oral only 7.5 mg PO Q4 MDD 6 tablets PRN (Reason: pain) Qty: 30 RF: 0 Continued atorvastatin 40 mg tablet 40 mg PO QPM RF: 0 carvedilol 25 mg tablet 25 mg PO BID RF: 0 warfarin 2.5 mg tablet 7.5 mg PO DAILY RF: 0 melatonin 3 mg tablet 3 mg PO HS RF: 0 lamotrigine 25 mg tablet 50 mg PO BID RF: 0 amlodipine 10 mg tablet 10 mg PO DAILY RF: 0 ferrous sulfate 325 mg (65 mg iron) tablet 650 mg PO DAILY RF: 0 bupropion HCl 75 mg tablet 75 mg PO DAILY RF: 0 trazodone 300 mg tablet 300 mg PO HS RF: 0 gabapentin 300 mg capsule 300 mg PO BID RF: 0 omeprazole 20 mg capsule,delayed release(DR/EC) 20 mg PO DAILY RF: 0 sertraline 50 mg tablet 50 mg PO DAILY RF: 0 Discontinued oxycodone-acetaminophen 5-325 mg tablet 1 tab PO Q6H PRN (Reason: Pain) RF: 0 Discharge Orders: Discharge Order (Routine); Ordered 07/20/19 Ordered By: Yonis Yarbrough/Other Patient Handouts: Surgery Prevent DVT After Admission Data Admit Date/Time: 07/17/19 14:22 Attending Provider: Eduardo Sam Admit Provider: Eduardo Sam Primary Care Provider: PCP,NO Other Providers: Izzy Gambino ; Daniel Mackey ; Miladis Muse ; Leah Eller ; Avelina Harding ; Mary Ornelas ; Lyssa Ibarra ; Pasha Pena ; Jose J Hernandez ; Maikel Mei ; Poly Nicholson ; Love Cuenca ; Lilian Milton ; Jaguar Marrufo ; Marvin Nails ; Melodie Montenegro ; Kenji Yu ; Lisette Vargas ; Mravin Ortega ; Claudia Abbott ; Angie Dennis ; Elsy Lr I. ; Austin Chicas Other Interventions: Discharge Summary Assessment (RN) Last Done: 07/20/19 13:45 DC Date/Time DO NOT enter until pt leaves facility: 07/20/19 14:17
--- NOTE | 2019-07-24 11:07 | Coding Query ---
CODING QUERY To promote full compliance with coding requirements relating to patient care, provider participation is requested in all cases of family consultant uncertainty. Please assist us with the question(s) below: Coding Question(s): The History and Physical documents, "past history of stroke with right-sided weakness" and the Hospitalist Consultation on 07/17/19 documents, "She has residual balance issues since the CVA". Please specify below, regarding residual issues after the CVA in the past. x( ) Past CVA with residual Right Sided Weakness and Balance Issues ( ) Past CVA with residual Balance Issues ( ) Past CVA with residual Right Sided Weakness ( ) Other: Please Specify Physician's Response(s): Thank you Renata Bland Principal Diagnosis: "that condition established after study, to be chiefly responsible for occasioning the admission of the patient to the hospital for care." Co-Existing Principal Diagnosis: "when two or more diagnoses equally meet the criteria for principal diagnosis as determined by the circumstances of admission, diagnostic work up, and/or therapy provided, and the Alphabetic Index, Tabular List, or another coding guideline does not provide sequencing direction, any one of the diagnoses may be sequenced first." "When the physician has documented what appears to be a current diagnosis in the body of the record, but has not included the diagnosis in the final diagnostic statement, the physician should be asked whether the diagnosis should be added." (Source Coding Clinic 2 QTR90. p3-4) BHARGAV
== END 2019-07-20 14:17 | disposition home or self-care (01) | DRG 511 ==
LOC: 3W 14:22 → EDSTATUS 07-18 07:30